=== PATIENT | male | born 1985 | race Caucasian/White ===

== ENCOUNTER 2018-03-11 21:55 | Emergency (ER) | payer SELFPAY, OTHER ==
[2018-03-12] MEDS: DIPHTH/TET/ACEL PERTUSS (ADULT) 0.5 ML VIAL IM* (02:22)
== END 2018-03-12 04:50 | disposition home or self-care (01) ==
LOC: FTE 21:55
DX: S31.154A Open bite of abdominal wall, left lower quadrant without penetration into peritoneal cavity, initial encounter (principal); W54.0XXA Bitten by dog, initial encounter; Y92.9 Unspecified place or not applicable; Z23 Encounter for immunization
CPT/HCPCS: 76705; 90471; 90715; 99284-25